=== PATIENT | male | born 1940 | race Caucasian/White ===

== ENCOUNTER → 2017-05-15 | Outpatient (CLI) | payer OTHER | LOC: BMCIMAGING 09:59 | PROVIDERS: ATTEND Family Medicine | DX: M79.642 Pain in left hand (principal); W19.XXXA Unspecified fall, initial encounter ==

== ENCOUNTER → 2017-05-20 | Outpatient (CLI) | payer OTHER | LOC: BMCIMAGING 15:46 | PROVIDERS: ATTEND Physician Assistant | DX: S62.232D Other displaced fracture of base of first metacarpal bone, left hand, subsequent encounter for fracture with routine healing (principal) ==

== ENCOUNTER → 2017-06-10 | Outpatient (CLI) | payer OTHER | LOC: BMCIMAGING 14:31 | PROVIDERS: ATTEND Physician Assistant | DX: S62.292A Other fracture of first metacarpal bone, left hand, initial encounter for closed fracture (principal) ==

== ENCOUNTER → 2017-07-01 | Outpatient (CLI) | payer OTHER | LOC: BMCIMAGING 14:27 | PROVIDERS: ATTEND Physician Assistant | DX: S62.232D Other displaced fracture of base of first metacarpal bone, left hand, subsequent encounter for fracture with routine healing (principal) ==

== ENCOUNTER → 2018-02-21 | Outpatient (CLI) | payer OTHER, MEDICARE | LOC: BMCIMAGING 10:34 | PROVIDERS: ATTEND Physician Assistant Medical | DX: Z01.811 Encounter for preprocedural respiratory examination (principal) ==